=== PATIENT | male | born 1955 | race Caucasian/White ===

== ENCOUNTER 2024-07-21 13:47 | Inpatient (IN) | payer MEDICARE, OTHER, SELFPAY ==
[2024-07-21] VITALS (9 sets, daily range): BP systolic 138–177; BP diastolic 70–85; BMI 27.1
--- NOTE | 2024-07-21 10:21 | ED.GENMED ---
History of Present Illness
General
Chief Complaint: Weakness
Time Seen by Provider: 07/21/24 09:27
History of Present Illness
History of Present Illness:
69-year-old male with no significant past medical history presenting to the emergency department for pain and weakness. Patient reports about 2 months ago he started to have right hip and groin pain. He noticed it particularly when he was on a
vacation in [place], had difficulty keeping up with his on walking secondary to pain and weakness, also noted some paresthesias to his feet. He has been following with his doctor, has been on prednisone x 2 with improvement of symptoms. He
also notes that he has been following up with an orthopedic doctor, was told to take meloxicam for his pain. He then saw a pain management doctor who told him to take celecoxib. He denies any significant improvement of symptoms while on these
medications. Most recently in the past 4 to 5 days, has had increasing pain to his upper extremities with weakness to upper extremities as well. He also notes weakness to his lower extremities. Denies fever. Denies urinary or bowel complaints.
He is scheduled to get an outpatient MRI on Sunday, however came to the ER today due to his pain and difficulty walking. Denies any family history of neurologic processes. Denies chest pain, difficulty breathing, abdominal pain. Denies
dystrophy medical complaint
Phy Exam
Physical Exam
Physical Exam:
General: Well-appearing, no clinical signs of dehydration, nontoxic and in no acute distress
HEENT: protecting airway
Neck: appears supple
CV: Normal heart rate, regular rhythm
Resp: No accessory muscle use, no increased work of breathing, lungs clear to auscultation bilaterally
Abd: Soft and non-distended, no tenderness to palpation
Extremities: No tenderness to the midline cervical/thoracic/lumbar spine. Mild paraspinal tenderness to lumbar region. Weakness to all extremities, 4/5, difficulty keeping arms and legs off of the bed. Sensation is globally intact. Swelling to
the right hand without erythema or warmth.
Neuro: alert, no focal neurologic deficit
: deferred
Rectal: deferred
Psych: Normal affect
Skin: Intact
Course
Orders/Labs/Results
Orders:
Orders
07/21/24 10:09
Morphine Sulfate 4 mg IV NOW STA
07/21/24 10:30
CRP [C-Reactive Protein] Urgent
Complete Blood Count/With Diff Urgent
ESR [Erythrocyte Sed Rate] Urgent
Urinalysis Reflex To Culture Urgent
Date Specimen was Collected: 07/21/24
Time Specimen was Collected: 10:12
07/21/24 10:58
Comprehensive Metabolic Panel Urgent
Creatine Phosphokinase Urgent
Folate Urgent
Comment: B12 FOLATE ADDED ON BY FLOOR 12:50PM 07-21-24
Vitamin B12 Urgent
07/21/24 11:09
Protime/PTT Urgent
Comment: PREVIOUS CLOTTED
07/21/24 11:42
MethylPREDNISolone. [Solu-Medrol] 1,000 mg 0.9% Sodium Chloride 250 ml [Nss] 250 ml IV NOW
07/21/24 12:49
Add On- LAB Urgent
Tests Added?: b12 folate
07/21/24 13:20
Admit/Transfer Patient As Directed
Co-Sign Provider:
Level of Care: Inpatient admission
Assign to:: Medical/Surgical
Physician / Group: sony yuan
Diagnosis: Bilateral upper and lower extremity weakness concern for polymyositis
Reason for Hospitalization: Bilateral upper and lower extremity weakness concern for polymyositis
Expected length of stay greater than two midnights?: Yes
ELOS- Estimated Length of Stay in days: 4
I certify the patient meets the requirements for IP care: Yes
07/21/24 13:22
Code Status As Directed
Resuscitation Status: Full Code
07/21/24 13:26
PRN Pain Medication Management As Directed
May give lesser potent ordered pain med per pt: Yes
preference::
Protocol:: Medication orders for pain may be administered in a
manner that supports deferring to patient preference
when the pt is:
- Requesting an ordered lesser potent pain medication.
Least to most potent pain medications are defined
as: acetaminophen < NSAID < tramadol < opioids
(morphine, oxycodone, hydromorphone).
- Requesting a lesser dose of the same medication IF
ORDERED.
- Requesting a less intrusive route of administration
if both routes are prescribed by the provider (PO <
IV).
07/21/24 13:37
OMAR, IgG Reflex to HEp-2 [S] Routine
ANCA - MPO/PR3 Ab Profile [S] Routine
Cyclic Citrullinat Pep IgG/IgA [S] Routine
Rheumatoid Factor [Rheumatoid Agglutinin] Routine
Abnormal Lab Results
07/21/24 07/21/24 07/21/24
10:30 10:58 11:09
RBC 3.90 L 10^6/uL
(4.70-6.10)
Hgb 12.2 L g/dL
(13.0-18.0)
Hct 37.3 L %
(39.0-52.0)
MCV 95.6 H fL
(80.0-94.0)
MCH 31.3 H pg
(27.0-31.0)
MCHC 32.7 L g/dL
(33.0-37.0)
Absolute Monos (auto) 1.3 H 10^3/uL
(0.1-0.6)
Lymphocytes % 15.4 L %
(20.5-51.1)
Monocytes % 15.7 H %
(1.7-9.3)
ESR 87 H mm/hour
(0-20)
PT 15.2 H Sec
(11.4-14.6)
Glucose 116 H mg/dl
(70-99)
ALT 56 H U/L
(0-50)
Creatine Kinase 31 L U/L
(55-170)
C-Reactive Protein 151.70 H mg/L
(0.0-10.00)
Albumin 3.3 L g/dl
(3.5-5.0)
Urine Ketones Trace A
(Negative)
Urine Urobilinogen 2+ A
(Neg - 1+)
07/21/24 10:30
07/21/24 10:58
Vital Signs
Initial and Last Documented VS:
Initial Vital Signs
Temp Pulse Resp BP Pulse Ox
98.4 F 87 18 140/70 100
07/21/24 09:02 07/21/24 09:02 07/21/24 09:02 07/21/24 09:02 07/21/24 09:02
Last Documented Vital Signs
Temp Pulse Resp BP Pulse Ox
98.4 F 88 14 149/82 95
07/21/24 09:02 07/21/24 15:30 07/21/24 15:30 07/21/24 15:00 07/21/24 15:30
MDM/Problems Addressed
MDM/Problems Addressed:
69-year-old male without significant past medical presenting for progressive pain and weakness to extremities. Vital signs are normal.
On exam, patient is in no acute distress, however does appear uncomfortable secondary to pain. Patient with generalized weakness to all extremities, however denies any difficulty breathing, protecting airway without suspected respiratory
involvement. No focal tenderness to the midline spine. However symptoms appear to have been ongoing for the past 2 months with concern for progressive neurologic disorder versus polyarthropathy versus a transverse myelitis. Plan for laboratory
analysis. Will consult with neurology.
11:30 -in discussion with neurology, suspected polymyalgia rheumatica, recommending high-dose steroids. CRP is 150, consistent with a polyarthropathy. Plan for admission given patient's pain and weakness.
15:00 -[id number] discussion with hospitalist, who had discussed case with rheumatology. No in-house rheumatology at this time, however recommending high-dose steroids with suspicion for polymyositis. Feel the patient will ultimately require a
muscle biopsy and EMG. Patient himself does not want to be transferred, would prefer to stay here until stabilized from a musculoskeletal standpoint, with subsequent outpatient rheumatology follow-up. Plan for admission here, continued steroids,
MRI imaging of the thighs per rheumatology, with likely subsequent outpatient rheum follow-up. On reassessment, patient is moving all extremities much better after high-dose steroids.
*Critical Care Note
Total Time (30-74mins, 75-104mins- exclusive of procedures): Not Applicable
ED Attending Note
-
Portions of this chart may have been created with voice recognition software.� Occasional wrong word or��sound alike� substitutions may have occurred due to the inherent limitations of voice recognition software.
Discharge Plan
Departure
Patient Disposition: Admit
Date of Disposition: 07/21/24
Time of Disposition: 11:47
Presentation/result/management discussed w/ accepting MD/DO: Hospitalist
Patient with high blood pressure during this ER visit?: No
Condition: Fair
Discharge Problem:
Weakness, Polyarthralgia
Interventions
Interventions:
*Risk Screen - Suicide Last Done: 07/21/24 09:06
*General Assessment Last Done: 07/21/24 09:06
*Neglect/Abuse Screening Last Done: 07/21/24 09:06
ED- Fall Risk Assessment Last Done: 07/21/24 15:34
*ED COVID-19 Vaccine History Last Done: 07/21/24 10:39
*Nursing Disposition Last Done: 07/21/24 15:34
ED- Cardiac Assessment Last Done: 07/21/24 10:44
ED-Musculoskeletal Assessment Last Done: 07/21/24 10:44
ED- Neurological Assessment Last Done: 07/21/24 10:44
ED- Pulmonary Assessment Last Done: 07/21/24 10:44
Discharge Date and Time
Discharge Date/Time: 07/21/24 15:34
[2024-07-21] MEDS: MORPHINE SULFATE 4 MG IV (10:34)
[2024-07-21 11:20] LABS: % Basophils 0.4 % (0-2); % Eosinophils 0.5 % (0-6); % Immature Granulocytes 0.4 % (0-0.5); % Lymphocytes 15.4 % (20.5-51.1); % Monocytes 15.7 % (1.7-9.3); % Neutrophils 67.6 % (42.2-75.2); Absolute Lymphocytes 1.2 10^3/uL (1.2-3.4); Absolute Monocytes 1.3 10^3/uL (0.1-0.6); Absolute Neutrophils 5.4 10^3/uL (1.4-6.5); Hematocrit 37.3 % (39.0-52.0); Hemoglobin 12.2 g/dL (13.0-18.0); Mean Corp Hgb Conc. 32.7 g/dL (33.0-37.0); Mean Corpuscular Hgb 31.3 pg (27.0-31.0); Mean Corpuscular Volume 95.6 fL (80.0-94.0); Nucleated Red Blood Cells % 0 % (-); Red Cell Dist. Width 12.4 % (11.5-14.5)
[2024-07-21 11:26] LABS: ALT (SGPT) 56 U/L (0-50); AST (SGOT) 38 U/L (17-59); Albumin 3.3 g/dl (3.5-5.0); Alkaline Phosphatase 78 U/L (38-126); Blood Urea Nitrogen 11 mg/dl (9-20); Calcium 8.8 mg/dl (8.4-10.2); Carbon Dioxide 24 mmol/L (22-30); Chloride 100 mmol/L (98-107); Estimated Creatinine Clearance 103 ml/min; Glucose 116 mg/dl (70-99); Potassium 4.4 mmol/L (3.5-5.1); Sodium 135 mmol/L (135-145); Total Bilirubin 0.6 mg/dl (0.2-1.3); Total Protein 6.4 g/dl (6.3-8.2); eGFR > 60.00
[2024-07-21 11:38] LABS: APTT 33.4 Sec (23.4-35.0); INR 1.16; PT 15.2 Sec (11.4-14.6)
--- NOTE | 2024-07-21 12:05 | CON.NEURO ---
Consultation
Order
Date of Consultation: 07/21/24
Requesting Provider:
Reason for Consult: Weakness
Neurology Consultation Note.
HPI: This is a 69-year-old ambidextrous man who presented to [facility] on 07/21/2024 with pain and weakness. According to the patient he developed gradual, progressive painful right proximal leg weakness and stiffness that
progressed to the left side within several weeks. Mr. Joyce states that within the last several weeks his pain spread to bilateral proximal arms. The patient admits to right hand edema and joint stiffness along with pain with chewing on the
right.
Shayan Covarrubias reports significant improvement in his pain after he was started on oral steroids by ortho. He has been taking meloxicam, Celebrex and Tylenol for pain control without significant improvement. No reports of falls, rashes, weight
loss, visual changes, dysphagia or dyspnea.
ER VS: 140/70, 87, afebrile
EKG:pending
PDMP:none
Labs: Glucose�116, normal sodium, creatinine, ALT�56, CRP�150.7, hemoglobin�12.2, MCV�95.6, platelets�not available.
PMH: BPH, Peyronie's disease, YOVANI, history of Lyme disease, foreign metallic object in the eye (removed)
PSH: None
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
FH: Mother in her 90s from blood dyscrasias
All:NKDA
ROS:Constitutional: Negative. Negative for chills, fever and unexpected weight change.
HENT: Positive for right jaw pain
Eyes: Negative. Negative for photophobia, pain and visual disturbance.
Respiratory: Negative for cough, choking and shortness of breath.
Cardiovascular: Positive for right hand swelling
Gastrointestinal: Negative for abdominal pain and vomiting.
Endocrine: Negative. Negative for cold intolerance.
Genitourinary: Negative for dysuria, flank pain and urgency.
Musculoskeletal: Positive for myalgias, chronic intermittent back pain, arthralgias
Skin: Negative for rash.
Allergic/Immunologic: Negative. Negative for immunocompromised state.
Neurological: Positive for leg weakness, chronic right foot numbness
Psychiatric/Behavioral: Negative for behavioral problems, confusion and hallucinations.
General: Well developed. In no acute distress.
Cardio: Regular rate and rhythm without murmur. Extremities are without cyanosis or edema.
Neuro:
Mental Status: Alert, oriented to person, place, and date. Normal attention and recall. Good fund of knowledge. Follows complex requests across the midline. Comprehension, naming, and repetition intact. Immediate and delayed recall 3/3.
Cranial Nerves: . Pupils are equally round and reactive to light. EOMs full. Visual chen full to confrontation. No ptosis. No nystagmus. V1-V3 intact to light touch and pinprick bilaterally, symmetric. Face symmetric. Normal hearing AU.
The palate elevated well. SCMs and traps 5/5. Tongue midline. No dysarthria.
Motor: Normal bulk and tone. No pronator or arm drift. Strength 5/5 throughout. No clonus.
Reflexes: 2+ throughout the upper extremities and knees. 2/2 in AJs. Plantar responses flexor bilaterally.
Sensory: Normal pinprick, vibration and JPS.
Coordination: No dysmetria or tremor.
Gait: deferred
Assessment and Plan:
I. Proximal painful myopathy.
II. Asymmetric distal arthropathy
III. Ambulatory dysfunction
-Fall precautions
-EKG
-Please follow-up ESR, urinalysis, TSH, CK, RF, anti CCA, OMAR, ANCA panel,
-Rheumatology consult.
-PT
-DVT prophylaxis.
I personally reviewed all radiology and labs along with past medical records pertinent to current medical problems. Total time spent in patient care is 60 minutes.
Thank you for allowing us to participate in the care of this patient. We will continue to follow. Please do not hesitate to contact us with any questions or concerns.
Subjective/Objective
Subjective Data
Date of Service: July 21, 2024
Objective Data
Vital Signs
Temp Pulse Resp BP Pulse Ox
36.9 C 87 13 144/76 98
07/21/24 09:02 07/21/24 11:45 07/21/24 11:45 07/21/24 11:00 07/21/24 11:15
Lab Results
07/21/24 10:30
07/21/24 10:58
PT 15.2 Sec (11.4-14.6) H 07/21/24 11:09
INR 1.16 07/21/24 11:09
APTT 33.4 Sec (23.4-35.0) 07/21/24 11:09
Sodium 135 mmol/L (135-145) 07/21/24 10:58
Potassium 4.4 mmol/L (3.5-5.1) 07/21/24 10:58
BUN 11 mg/dl (9-20) 07/21/24 10:58
Glucose 116 mg/dl (70-99) H 07/21/24 10:58
Calcium 8.8 mg/dl (8.4-10.2) 07/21/24 10:58
Patient Allergies
No Known Allergies Allergy (Unverified 07/21/24 09:02)
Medications
-
Active Medications
Generic Name Dose Route Start Last Admin
Trade Name Freq PRN Reason Stop Dose Admin
Methylprednisolone Sodium 258 mls @ 258 mls/hr 07/21/24 11:42
Succinate 1,000 mg/ Sodium IV 07/21/24 12:41
Chloride NOW STA
Home Medications
�Medication �Instructions �Recorded
No Meds [No Current Medications] 07/21/24
Vital Signs and Labs
-
Vital Signs and Labs:
Vital Signs
Temp Pulse Resp BP Pulse Ox
36.9 C 87 13 144/76 98
07/21/24 09:02 07/21/24 11:45 07/21/24 11:45 07/21/24 11:00 07/21/24 11:15
Lab Results
07/21/24 10:30
07/21/24 10:58
PT 15.2 Sec (11.4-14.6) H 07/21/24 11:09
INR 1.16 07/21/24 11:09
APTT 33.4 Sec (23.4-35.0) 07/21/24 11:09
Sodium 135 mmol/L (135-145) 07/21/24 10:58
Potassium 4.4 mmol/L (3.5-5.1) 07/21/24 10:58
BUN 11 mg/dl (9-20) 07/21/24 10:58
Glucose 116 mg/dl (70-99) H 07/21/24 10:58
Calcium 8.8 mg/dl (8.4-10.2) 07/21/24 10:58
Medications
-
Medications:
Generic Name Dose Route Start Last Admin
Trade Name Freq PRN Reason Stop Dose Admin
Methylprednisolone Sodium 258 mls @ 258 mls/hr 07/21/24 11:42 07/21/24 12:18
Succinate 1,000 mg/ Sodium IV 07/21/24 12:41 258 mls
Chloride NOW STA Administration
Home Medications
-
Home Medications
No Meds [No Current Medications] 07/21/24
[2024-07-21] MEDS: SOLU-MEDROL 258 MG IV (12:18)
--- NOTE | 2024-07-21 12:27 | HPS.HSE ---
Addendum entered and electronically signed by CELIA Mandel 07/21/24 15:53:
Patient did mention TMJ pain with this he denied any headache blurred vision vision loss or scalp tenderness. He also stated that his pain is worse in the morning and as he would walk around throughout the day it would get slightly better
especially after taking Celebrex and the Medrol pack he was on.
This was discussed with Dr. Tiffanie Orona who believes PMR is his differential diagnosis given his inflammatory markers and above pain in a.m. responding to steroids getting better throughout the day
Original Note:
Family Physician
-
Family Physician: Karoline Vanegas
Chief Complaint
-
Bilateral upper and lower extremity weakness, pain
History of Present Illness
69-year-old male complaining of chronic right hip pain for approximately 2 months with weakness and some paresthesias to his feet while on recent vacation in [place] walking. He completed prednisone x 2 with improvement of symptoms prescribed by
Ortho. He was treated for sciatica had lumbar x-ray showing mild multilevel degenerative changes, lumbar osteophytosis, mild lower lumbar facet arthropathy. He was referred to pain management who placed him on Celebrex. Over the past 4 to 5 days
he now has had increasing pain to bilateral shoulders with weakness to biceps left greater than right. He has also noticed swelling to the MCP joints of bilateral hands some slight swelling to his knees. He denies any rashes he does have a round
pigmented birthmark to his right lower leg. He is an alcoholic who drinks 12 ounces of whiskey +3 12 ounce Guinness beers daily with last drink being Sunday at 8 PM 2 days ago 07/19/2024. He has no current tremors. He denies headaches, fever,
chills, bowel or bladder incontinence, saddle anesthesia, abdominal pain, nausea, vomiting, diarrhea, urinary symptoms, chest pain, palpitations, shortness of breath. Patient has past medical history of sciatica, back pain, chronic right hip pain,
alcohol abuse, smokes marijuana 1 joint a day
Medical History
Past Medical History
Past Medical History: Reports Other
Additional Past Medical History:
sciatica
back pain
chronic right hip pain
alcohol abuse
smokes marijuana 1 joint a day
Past Surgical History: Reports None
Social History
Alcohol: Daily (three guiness beers day plus 12 oz whiskey since age 15 total 54 years)
Drug: Marijuana (1 joint day )
Personal:
Living: With Family
Employment: Employed
Family History
Family History: Other (no autoimmune issuses)
Allergies / Home Medications
Allergies reflects when Allergies were last updated in [facility].
Home Medications with original date entered in [employer]
Allergy/Medication List:
Allergies
Allergy/AdvReac Type Severity Reaction Status Date / Time
No Known Allergies Allergy Unverified 07/21/24 09:02
Home Medications
No Meds [No Current Medications] 07/21/24
Review of Systems
-
History Source: Patient and Family ()
A 12 point ROS was completed and negative except as noted: Yes
Constitutional: Reports Fatigue; Denies Fever or Chills
EENT: Denies Sore Throat, Mouth Swelling or Runny Nose
Respiratory: Denies Cough, Hemoptysis or Trouble Breathing
Cardiac: Denies Chest Pain, Diaphoresis, Palpitations or Syncope
Abdomen/GI: Denies Abdominal Pain, Nausea, Vomiting, Diarrhea, Constipated, Bloody Stools or Black Stools
: Denies Dysuria, Frequency, Flank Pain, Incontinence, Difficulty Voiding or Urgency
Musculoskeletal: Reports Joint Pain (Bilateral hands, knees, shoulders, bilateral hips), Muscle Pain (Pain to bilateral calf muscles lateral thigh muscles near greater trochanter, bilateral biceps) and Edema (Over the MCP joints of both bilateral
hands, slight edema bilateral knees no obvious effusions)
Neurological: Reports Weakness (Upper extremities left greater than right weak shrug muscle left side difficulty lifting arms up due to severe bilateral shoulder pain, weakness to lower legs 3 out of 5 bilaterally when trying to lift up in the air
or bend at the knee); Denies Dizzy or Headache
Endocrine: Denies Polyuria or Polydipsia
Hematologic/Lymphatic: Reports Other (Chronic round pigmented birthmark to right lower extremity); Denies Bleeding, Swollen Glands or Bruising
Psych: Reports Calm
Physical Exam
Vital Signs
Vital Signs
Temp Pulse Resp BP Pulse Ox
98.4 F 87 13 144/76 98
07/21/24 09:02 07/21/24 11:45 07/21/24 11:45 07/21/24 11:00 07/21/24 11:15
Physical Exam
General: Comfortable and Conversant; No Fever or Chills
HEENT: NormoCephalic, Anicteric, Moist mucous membranes, PERRLA, [place] Conjunctivae, No Ptosis, Neck Nontender (No vertebral bony tenderness but tenderness bilateral cervical muscles and trapezius) and Other (Speech clear no difficulty swallowing)
Respiratory: Clear; No Wheezes, Rales or Rhonchi
Cardiac: S1/S2 and Regular Rhythm; No Murmur, Rub, Gallop or Peripheral Edema
Breast: Deferred by me
GI: Soft, Non Tender, Non Distended, Normal Bowel Sounds and No Hepatosplenomegaly
Rectal: Deferred by Provider
Genito-urinary: Deferred by me
Musculoskeletal: No Clubbing, No Cyanosis, No Edema and Other (Upper extremities left greater than right weak shrug muscle left side difficulty lifting arms up due to severe bilateral shoulder pain, weakness to lower legs 3 out of 5 bilaterally when
trying to lift up in the air or bend at the knee)
Neuro: AO x 3, Cranial Nerves Intact and Other (Upper extremities left greater than right weak shrug muscle left side difficulty lifting arms up due to severe bilateral shoulder pain, weakness to lower legs 3 out of 5 bilaterally when trying to lift
up in the air or bend at the knee); No Slurred Speech, Facial Droop, Tremors or Sedated
Hematologic/Lymphatic: No Lymphadenopathy
Psych: Calm
Laboratory Results
-
07/21/24 10:30
07/21/24 10:58
Laboratory Results
PT 15.2 Sec (11.4-14.6) H 07/21/24 11:09
INR 1.16 07/21/24 11:09
APTT 33.4 Sec (23.4-35.0) 07/21/24 11:09
Total Bilirubin 0.6 mg/dl (0.2-1.3) 07/21/24 10:58
AST 38 U/L (17-59) 07/21/24 10:58
ALT 56 U/L (0-50) H 07/21/24 10:58
Alkaline Phosphatase 78 U/L (38-126) 07/21/24 10:58
Data Reviewed
-
Lab Data: Labs Reviewed by me
Impression/Plan
-
Impression/plan:
Observation MedSurg
#Upper and lower extremity weakness concern for Polymyositis versus other autoimmune disease
-CRP elevated at 150
-Cervical spine MRI
-Consult Neurology who recommends high-dose steroids( neurology made aware of below conversation with rheumatology)
-Consult Rheumatology -I spoke with Dr. Tiffanie Orona who recommended bilateral thigh MRIs in addition to cervical MRI she would like EMG and biopsy of the muscles we do not offer that currently here however transfer to a tertiary center that has
rheumatology available would be ideal choice patient is preferring [facility] ER attending is calling to see if they provide those services versus [facility]
-IV Solu-Medrol infusing in ER, will continue methylprednisone tomorrow
-Check ESR, UA, OMAR, ANCA, total CK, cyclic Citrullinat peptide IgG/IgA, RA factor
-PT/OT/case management eval
#Alcohol abuse
Drinks 12 ounces of whiskey daily +3 12 ounce Guinness beers a day
-Last drink was 07/19/2024 at 8 PM
-ALT 56
-MSAS screen with protocol
-IV thiamine, IV folate
-Check B12, folate level
#Marijuana use
Smokes 1 joint a day has not had some in a few days
DVT prophylaxis
SCDs
Full code
[2024-07-21 13:06] LABS: Erythrocyte Sed Rate 87 mm/hour (0-20)
[2024-07-21 14:10] LABS: Urine Albumin Negative (Neg - Trace); Urine Bilirubin Negative (Negative); Urine Character Slightly Cloudy (Clear); Urine Color Yellow; Urine Glucose Negative (Negative); Urine Ketone Trace (Negative); Urine Leukocyte Negative (Negative); Urine Nitrite Negative (Negative); Urine Occult Blood Negative (Negative); Urine Specific Gravity 1.015 (<1.030); Urine Urobilinogen 2+ (Neg - 1+)
[2024-07-21 14:11] LABS: Creatine Phosphokinase 31 U/L (55-170)
--- NOTE | 2024-07-21 14:43 | W.PN.UPDATE ---
Update Note
Progress Note Update
This is an addendum to the H&P written by Lashonda Flanagan on 07/21/2024.
69-year-old male past medical history of gout, presenting with 2 months of right hip/groin pain and proximal lower extremity muscle weakness originally while vacationing in [place]. Lumbar x-ray showed mild degenerative changes. He was referred to
pain management started on Celebrex. Now with worsening bilateral shoulder pain/stiffness, weakness of biceps right greater than left, swelling of MCP joints of bilateral hands and swelling of the knees. No rashes. He had improvement with steroid
course twice.
Labs show elevated CRP of 150. Creatinine kinase of 31.
There was initial concern for PMR however given hand swelling and pain this seems unlikely. There is also concern for myositis however creatinine kinase is low at 31.
Neurology was consulted by ER and 1000 mg of methylprednisolone daily was recommended which will be continued.
There is some concern for polyarticular gout versus rheumatoid arthritis. Will check inflammatory markers, urinalysis, TSH, rheumatoid factor, anti-CCA, OMAR, ANCA panel, will check MRI cervical spine with and without contrast.
Rheumatology on-call also concerned for myositis and recommended MRI of bilateral thighs, thigh biopsy within 2 weeks, EMG of lower extremity.
[2024-07-21 17:48] LABS: Folate 8.6 ng/ml (2.76-20); Vitamin B12 218 pg/ml (239-931)
--- NOTE | 2024-07-21 18:12 | CM ---
Chart reviewed. Patient is here for gout vs. rheumatoid arthritis vs. another autoimmune disease. Labs drawn. Received steroids. Neurology and rheumatology consulted. Patient's at bedside. Patient is usually independent. 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 He drives. Owns a cane. Lives in a home. He has active PCP and pharmacy. No +SDOHs.
asking if could go home today. CM went over plan via hospitalist's notes. She is aware that biopsy can be done in 2 weeks. She repeatedly asked if the MRIs for his legs and cervical spine would be done. She also questioned if he would
be transferred. He is to be transferred, she'd like him to go to [facility] at [place]. She does not want to drive down to [place]. She and feel that because he is better, he should be able to go home. DANIEL explained there are labs that have
been drawn and may need some more studying. She is adamant about driving him, if he were to be transferred.
ANTICIPATED DISCHARGE PLAN: Transfer to another [facility] campus vs. going home with , when medically cleared.
[2024-07-22 06:09] LABS: % Basophils 0.1 % (0-2); % Immature Granulocytes 0.5 % (0-0.5); % Lymphocytes 11.8 % (20.5-51.1); % Monocytes 5.2 % (1.7-9.3); % Neutrophils 82.4 % (42.2-75.2); Absolute Lymphocytes 0.9 10^3/uL (1.2-3.4); Absolute Monocytes 0.4 10^3/uL (0.1-0.6); Absolute Neutrophils 6.3 10^3/uL (1.4-6.5); Hematocrit 35.5 % (39.0-52.0); Hemoglobin 11.8 g/dL (13.0-18.0); Mean Corp Hgb Conc. 33.2 g/dL (33.0-37.0); Mean Corpuscular Hgb 31.1 pg (27.0-31.0); Mean Corpuscular Volume 93.4 fL (80.0-94.0); Mean Platelet Volume 9.2 fL (7.4-10.4); Nucleated Red Blood Cells % 0 % (-); Platelet Count 570 10^3/uL (130-400); Red Cell Dist. Width 11.9 % (11.5-14.5); White Blood Cell Count 7.6 10^3/uL (4.8-10.8)
[2024-07-22 06:35] LABS: ALT (SGPT) 60 U/L (0-50); AST (SGOT) 37 U/L (17-59); Albumin 3.4 g/dl (3.5-5.0); Alkaline Phosphatase 79 U/L (38-126); Blood Urea Nitrogen 19 mg/dl (9-20); Calcium 9.3 mg/dl (8.4-10.2); Carbon Dioxide 23 mmol/L (22-30); Chloride 103 mmol/L (98-107); Estimated Creatinine Clearance 103 ml/min; Glucose 167 mg/dl (70-99); HDL Cholesterol 37 mg/dl; LDL Cholesterol, Calculated 75 mg/dl; Potassium 5.1 mmol/L (3.5-5.1); Sodium 138 mmol/L (135-145); Total Bilirubin 0.3 mg/dl (0.2-1.3); Total Cholesterol 124 mg/dl (50-199); Total Protein 6.4 g/dl (6.3-8.2); Triglyceride 61 mg/dl (10-149); Very Low Density Lipoprotein 12 mg/dl (0-30); eGFR > 60.00
[2024-07-22 07:00] VITALS: BP 149/88
[2024-07-22] MEDS: VALIUM 2 MG PO (09:42)
[2024-07-22] MEDS: SOLU-MEDROL 258 MG IV (12:13)
--- NOTE | 2024-07-22 13:56 | W.PN.HOSP.TC ---
Addendum entered and electronically signed by Lizzie Santos MD 07/22/24 18:18:
I saw and evaluated the patient independently. I reviewed the resident�s note and agree with findings and plan as documented by Dr. Martel.
GENERAL: well developed, well nourished, male in no apparent distress
HEENT: NC/AT--no O2 requirements
HEART: regular rate and rhythm, +S1, +S2
LUNGS : clear to auscultation bilaterally
ABDOM: soft, nontender, nondistended, + bowel sounds
EXT: no cyanosis, clubbing, or edema
NEUROLOGIC: grossly intact
diffuse myalgias with proximal muscle weakness--Concern for polymyalgia rheumatica--Differential includes polymyositis, polyarticular gout, versus other autoimmune disease --elevated inflammatory markers--feels better with pulse methylprednisolone--
RF, CCP, OMAR, PR3, MPO pending--- Polymyositis less likely considering normal CK level and normal MRI (below)-- CSPine MRI: Suspected active inflammation of the nuchal ligament posterior to the C5 and C6 spinous processes. Degenerative changes of
cervical spine--- MRI of the left and right thighs: Mild tendinosis, no evidence for significant myositis-- Patient to be discharged home on 20mg Prednisone and followed up by Rheumatology outpatient.
Alcohol Use Disorder --Drinks 12 ounces of whiskey daily, 3 12 ounce cans of Guinness per day--numbness could be due to alcohol neuropathy, thiamine, folate deficiency--no signs of DTs--B12 low normal, would consider repletion--folate WNL
ok for d/c with f/u with rheum
Original Note:
Today's Communication/Plan
-
.
Assessment / Plan
Assessment / Plan
1. Concern for polymyalgia rheumatica
- Differential includes polymyositis, polyarticular gout, versus other autoimmune disease
- CRP 150 (elevated), ESR 87 (elevated), CK 31
- RF, CCP, OMAR, PR3, MPO pending
- Uric Acid Level Pending
- Polymyositis less likely considering normal CK level and normal MRI (below)
- CSPine MRI: Suspected active inflammation of the nuchal ligament posterior to the C5 and C6 spinous processes. Degenerative changes of cervical spine.
- MRI of the left and right thighs: Mild tendinosis, no evidence for significant myositis.
- Patient to be discharged home on 20mg Prednisone and followed up by Rheumatology outpatient.
2. Alcohol Use Disorder
-Drinks 12 ounces of whiskey daily, 3 12 ounce cans of Guinness per day.
-Last drink was 3 days prior to presentation, at 8 PM.
-AST elevated, 60.
-MSAS remained 0-1 throughout admission.
-Vitamin B12 equals 218. Folate normal.
Anticipated Discharge: Today
Subjective/Interval History
-
Date of Service: July 22, 2024
Pt seen and examined this morning, sitting in chair comfortably. Was given pulse dose steroid yesterday, and today reports feeling markedly improved from admission. Denies pain in upper extremity/lower extremity bilaterally and is able to get up and
out of chair to walk. Notes mild swelling of the right hand that is also improved from presentation. In addition the patient denies fever, chills, joint warmth/redness, chest pain, shortness of breath.
Patient discussed in-depth history of chronic right hip pain, lower lumbar pain, lumbar x-rays exhibiting degenerative changes, treatment with prednisone as initiated by Ortho, referral to pain management and treatment with Celebrex. Patient notes
his current presentation of pain in the bilateral shoulders and bilateral hips began over the past 4 to 5 days.
Objective Data
-
Labs:
Laboratory Results
07/22/24
05:34
WBC 7.6
Hgb 11.8 L
Hct 35.5 L
Plt Count 570 H
Sodium 138
Potassium 5.1
Chloride 103
Carbon Dioxide 23
BUN 19
Creatinine 0.7
Glucose 167 H
Calcium 9.3
Total Bilirubin 0.3
AST 37
ALT 60 H
Alkaline Phosphatase 79
Vital Signs:
Vital Signs
Temp Pulse Resp BP Pulse Ox
97.9 F 99 18 149/88 94
07/22/24 07:00 07/22/24 07:00 07/22/24 07:00 07/22/24 07:00 07/22/24 07:00
I&O
07/21/24 07/22/24 07/23/24
06:59 06:59 06:59
Intake Total 920 / 920
Balance 920 / 920
Review of Systems
-
History Source: Patient
Constitutional: Reports No Symptoms
EENT: Reports No Symptoms Reported
Respiratory: Reports No Symptoms
Cardiac: Reports No Symptoms
Abdomen/GI: Reports No Symptoms
Musculoskeletal: Reports Joint Pain, Muscle Pain, Muscle Stiffness, Arthralgias and Myalgias
Skin: Reports No Symptoms
Physical Exam
-
General: Well Developed, Well Nourished, No Apparent Distress and Other (appears to be comfortable after methylprednisolone dose given)
HEENT: Normocephalic and Atraumatic
Respiratory: Clear to Auscultation
Cardiac: Regular Rhythm and S1/S2
GI: Soft and Nontender
Musculoskeletal: No Clubbing, No Cyanosis, No Edema and Other (Motor strength 4-5/5 after methylprednisolone dose; patient able to quickly get out of chair and walk across room. Noted right hand swelling, greatest at the MCPs. )
Skin: Warm and Dry
Neuro: Awake, Alert and Oriented
Psych: Calm
Data Reviewed
-
MRI: Report Reviewed by me
Labs: Labs Reviewed by me
--- NOTE | 2024-07-22 14:38 | W.PN.NEURO.1 ---
Today's Communication / Plan
-
.
Subjective/Objective
Subjective Data
Date of Service: July 22, 2024
Neurology follow-up note
Mr. Covarrubias endorses significant improvement of his myalgias as well as strength following initiation of methylprednisone. No reports of tremors, insomnia, gastric pain.
C spine MRI showed Thickening and enhancement of the nuchal ligament posterior to the C5 and C6 spinous processes, seen in acute inflammation, cervical DJD.
Labs: OMAR, CCP, RF�pending, UA�negative for protein, CK-31,
PMH: BPH, Peyronie's disease, YOVANI, history of Lyme disease, foreign metallic object in the eye (removed)
PSH: None
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
FH: Mother in her 90s from blood dyscrasias
All:NKDA
ROS:Constitutional: Negative. Negative for chills, fever and unexpected weight change.
HENT: Positive for right jaw pain
Eyes: Negative. Negative for photophobia, pain and visual disturbance.
Respiratory: Negative for cough, choking and shortness of breath.
Cardiovascular: Positive for right hand swelling
Gastrointestinal: Negative for abdominal pain and vomiting.
Endocrine: Negative. Negative for cold intolerance.
Genitourinary: Negative for dysuria, flank pain and urgency.
Musculoskeletal: Positive for arthralgias, improved
Skin: Negative for rash.
Allergic/Immunologic: Negative. Negative for immunocompromised state.
Neurological: Positive for myalgias,improved
Psychiatric/Behavioral: Negative for behavioral problems, confusion and hallucinations.
General: Well developed. In no acute distress.
Cardio: Regular rate and rhythm without murmur. Extremities are without cyanosis or edema.
Neuro:
Mental Status: Alert, oriented to person, place, and date. Normal attention and recall. Good fund of knowledge. Follows complex requests across the midline. Comprehension, naming, and repetition intact. Immediate and delayed recall 3/3.
Cranial Nerves: . Pupils are equally round and reactive to light. EOMs full. Visual chen full to confrontation. No ptosis. No nystagmus. V1-V3 intact to light touch and pinprick bilaterally, symmetric. Face symmetric. Normal hearing AU.
The palate elevated well. SCMs and traps 5/5. Tongue midline. No dysarthria.
Motor: Normal bulk and tone. No pronator or arm drift. Strength 5/5 throughout. No clonus.
Reflexes: 2+ throughout the upper extremities and knees. Plantar responses flexor bilaterally.
Sensory: Normal vibration at the toes.
Coordination: No dysmetria or tremor.
Gait: Normal base, stance, arm swing.
Assessment and Plan:
I. Proximal painful myopathy, clinically improved.
II. Asymmetric distal arthropathy
III. Ambulatory dysfunction
-Fall precautions
-Rheumatology consult.
-Please recall neurology services any questions or concerns
I personally reviewed all radiology and labs along with past medical records pertinent to current medical problems. Total time spent in patient care is 36 minutes.
Thank you for allowing us to participate in the care of this patient. Please do not hesitate to contact us with any questions or concerns.
Objective Data
Vital Signs
Temp Pulse Resp BP Pulse Ox
36.6 C 99 18 149/88 94
07/22/24 07:00 07/22/24 07:00 07/22/24 07:00 07/22/24 07:00 07/22/24 07:00
Lab Results
07/22/24 05:34
07/22/24 05:34
PT 15.2 Sec (11.4-14.6) H 07/21/24 11:09
INR 1.16 07/21/24 11:09
APTT 33.4 Sec (23.4-35.0) 07/21/24 11:09
Sodium 138 mmol/L (135-145) 07/22/24 05:34
Potassium 5.1 mmol/L (3.5-5.1) 07/22/24 05:34
BUN 19 mg/dl (9-20) 07/22/24 05:34
Glucose 167 mg/dl (70-99) H 07/22/24 05:34
Calcium 9.3 mg/dl (8.4-10.2) 07/22/24 05:34
LDL Cholesterol, Calc 75 mg/dl 07/22/24 05:34
Vitamin B12 218 pg/ml (628-931) L 07/21/24 10:58
Patient Allergies
No Known Allergies Allergy (Unverified 07/21/24 09:02)
Vital Signs and Labs
-
Vital Signs and Labs:
Vital Signs
Temp Pulse Resp BP Pulse Ox
36.6 C 99 18 149/88 94
07/22/24 07:00 07/22/24 07:00 07/22/24 07:00 07/22/24 07:00 07/22/24 07:00
Lab Results
07/22/24 05:34
07/22/24 05:34
PT 15.2 Sec (11.4-14.6) H 07/21/24 11:09
INR 1.16 07/21/24 11:09
APTT 33.4 Sec (23.4-35.0) 07/21/24 11:09
Sodium 138 mmol/L (135-145) 07/22/24 05:34
Potassium 5.1 mmol/L (3.5-5.1) 07/22/24 05:34
BUN 19 mg/dl (9-20) 07/22/24 05:34
Glucose 167 mg/dl (70-99) H 07/22/24 05:34
Calcium 9.3 mg/dl (8.4-10.2) 07/22/24 05:34
LDL Cholesterol, Calc 75 mg/dl 07/22/24 05:34
Vitamin B12 218 pg/ml (239-931) L 07/21/24 10:58
Medications
-
Medications:
Generic Name Dose Route Start Last Admin
Trade Name Freq PRN Reason Stop Dose Admin
Acetaminophen 650 mg 07/21/24 15:53
Acetaminophen 325 Mg Tablet PO 08/18/24 15:52
Q4HPRN PRN
mild pain/BLANK/temp> 100.4F
Enoxaparin Sodium 40 mg 07/21/24 18:00 07/21/24 18:54
Enoxaparin Sodium 40 Mg/0.4 Ml Syringe SC 08/18/24 17:59 Not Given
QPM RAYRAY
Methylprednisolone Sodium 258 mls @ 258 mls/hr 07/22/24 12:00 07/22/24 12:13
Succinate 1,000 mg/ Sodium IV 08/18/24 11:59 258 mls
Chloride Q24H RAYRAY Administration
Sodium Chloride 0 flush 07/21/24 17:00
Sodium Chloride 0.9% (Flush) Syringe IV 08/18/24 16:59
PER PROTOCOL RAYRAY
Home Medications
-
Home Medications
prednisone 20 mg tablet 20 mg PO DAILY #30 tabs 07/22/24
[2024-07-22 14:41] VITALS: BP 144/77; PULSE 84; O2SAT 95
[2024-07-22 15:00] VITALS: BP 166/86
[2024-07-22 15:50] LABS: Uric Acid 5.4 mg/dl (3.5-8.5)
[2024-07-22 16:20] LABS: TSH 0.44 uIU/ml (0.47-4.68)
--- NOTE | 2024-07-22 18:36 | W.DCSUMMARY ---
Addendum entered and electronically signed by Lizzie Santos MD 07/23/24 07:17:
Read, reviewed, and agree. See same day progress note for additional details. Time spent coordinating care, DC planning, review of DC plan of care with resident, transition of care, review of records in EMR, med rec, consults, notes, d/w
consultants, nursing, family, and CM = 20 minutes
Original Note:
Discharge Summary
Discharge Data
Date of Admission: 07/21/24
Date of Discharge: 07/22/24
Total time spent discharging patient (in min): 20
-
Pending Results: Yes
Additional Pending Results:
Rheumatoid Factor, Anti-CCP, anti-nuclear antibody, PR3-antibody, myeloperoxidase antibody, uric acid level
Hospital Course
Mr. Joyce is a 69-year-old male with a past medical history of gout, Lyme's disease, benign prostatic hyperplasia, generalized anxiety disorder who presented to the emergency department at [facility] on 07/21/2024 complaining of pain and
weakness. The patient endorses a close to 2-month history of chronic right hip pain and lower lumbar pain. He endorses that since the beginning of this issue, he has had lumbar x-rays that exhibited degenerative changes, a treatment with Medrol
dose pack as initiated by an orthopedist that greatly alleviated the symptoms, and evaluation by a tumbling barrel painter who treated him with Celebrex. The pain continue to persist and progressed to his left lower extremity as well, and over
the past 4 to 5 days the patient also noticed pain in the bilateral proximal upper extremities as well.
In the emergency department, the patient exhibited mild paraspinal tenderness to the lumbar region, 4/5 weakness in all extremities, and difficulty keeping his arms and legs off of the bed. In addition there was swelling to the right hand without
erythema or warmth. Laboratory studies exhibited an elevated erythrocyte sedimentation rate of 87, and elevated C-reactive protein of 151, a normal creatine kinase of 31, and a slightly elevated prothrombin time of 15.2. Since there was concern
for a progressive neurological disorder versus polyarthropathy versus transverse myelitis, neurology was consulted and the patient was admitted to [facility]. After discussion with neurology, polymyalgia rheumatica was #1 on the
differential. Since this was thought to be a rheumatologic disorder and there was no in-house rubber ball finisher, plans were made for outpatient rheumatologic follow up. The patient was given methylprednisolone which greatly improved his symptoms.
MRI imaging of the bilateral lower extremities revealed tendinosis, however no evidence of myositis. MRI imaging of the cervical spine exhibited some evidence of inflammation at the nuchal line. Plans were made for the patient to be followed up
with the rubber ball finisher on an outpatient basis. The patient was discharged on 20 mg of prednisone daily, to be continued until the patient saw the rubber ball finisher. Pending labs include rheumatoid factor, anti-CCP, antinuclear antibody, MN-3
antibody, myeloperoxidase antibody, and uric acid level.
Of note, vitamin B12 level was found to be low and it is recommended that the patient receive supplementation by his primary care provider.
Discharge Plan
-
Patient Disposition: Home (Routine Discharge)
Discharge Diagnosis/Procedures: Presumed Polymyalgia Rheumatica
Condition: Good
Diet: As tolerated and Regular
Activity: As tolerated
Driving Restrictions: As prior to admission
Bathing Restrictions: None
Referrals:
Tiffanie Orona MD [Active] - (call for hospital follow up appointment)
Karoline Vanegas MD [Family Provider] - in less than 1 week
Additional Discharge Medication Instructions: bring discharge paperwork with you to your rheum appointment
Prescriptions:
New
prednisone 20 mg tablet
20 mg PO DAILY Qty: 30 0RF
Rx Instructions:
Take until your appointment with the rubber ball finisher.
pantoprazole [Protonix] 40 mg tablet,delayed release (DR/EC)
40 mg PO DAILY Qty: 30 0RF
Discharge Orders:
Discharge Patient (As Directed); Ordered 07/22/24
Ordered By: Pierre Martel
Discharge Date and Time
Discharge Date/Time: 07/22/24 16:29
Print Language: UKRAINIAN
[2024-07-24 07:25] LABS: CCP Antibody IgG/IgA 5 Units (0-19)
== END 2024-07-22 16:29 | disposition home or self-care (01) | DRG 547 ==
LOC: 1 ACUTE 13:47
PROVIDERS: Clinical Nurse Specialist Family Health; ADMITTING PHYSICIAN Hospitalist; ATTENDING PHYSICIAN Internal Medicine; EMERGENCY PHYSICIAN Student in an Organized Health Care Education/Training Program; FAMILY PHYSICIAN Family Medicine; OTHER PHYSICIAN Psychiatry & Neurology Neurology
DX: M35.3 Polymyalgia rheumatica (principal); N40.0 Benign prostatic hyperplasia without lower urinary tract symptoms; M54.30 Sciatica, unspecified side; M12.9 Arthropathy, unspecified; G89.29 Other chronic pain; M25.551 Pain in right hip; Z86.19 Personal history of other infectious and parasitic diseases; F41.1 Generalized anxiety disorder
CPT/HCPCS: 72156; 73718; 80053; 80061; 81003; 82550; 82607; 82746; 83516; 84443; 84550; 85025; 85610; 85652; 85730; 86038; 86140; 86200; 86430; 96365; 96375; 97162; 99285; A9575

== ENCOUNTER → 2024-07-29 09:58 | Outpatient (REF) | payer MEDICARE, OTHER, SELFPAY ==
[2024-07-29 11:49] LABS: Erythrocyte Sed Rate 68 mm/hour (0-20)
== END ==
LOC: RAD 09:58
PROVIDERS: ATTENDING PHYSICIAN Physician Assistant
DX: M81.8 Other osteoporosis without current pathological fracture (principal); R79.82 Elevated C-reactive protein (CRP); Z13.820 Encounter for screening for osteoporosis
CPT/HCPCS: 36415; 85652; 86140

== ENCOUNTER → 2024-09-25 10:53 | Outpatient (REF) | payer MEDICARE, OTHER, SELFPAY ==
[2024-09-25 11:46] LABS: Ionized Calcium 1.16 mMOL/L (1.15-1.33)
[2024-09-25 12:09] LABS: Calcium 9.4 mg/dl (8.4-10.2); Phosphorus 3.1 mg/dl (2.5-4.5); Uric Acid 7.2 mg/dl (3.5-8.5)
[2024-09-25 12:14] LABS: Erythrocyte Sed Rate 4 mm/hour (0-20)
[2024-09-25 12:27] LABS: Vitamin D, 25-OH*** 27.3 ng/mL (30-80)
[2024-09-25 18:54] LABS: Hepatitis B Surface Antigen Negative (Negative)
[2024-09-25 19:11] LABS: Hepatitis B Core Ab, Total Negative (Negative); Hepatitis B Surface Antibody Negative; Hepatitis C Antibody Negative (Negative)
[2024-09-27 09:30] LABS: Intact PTH 42.2 pg/ml (13.6-85.8)
[2024-09-28 01:00] LABS: Albumin 4.25 g/dL (3.75-5.01); Alpha 2 Globulin 0.77 g/dL (0.48-1.05); Free Kappa Light Chains,Quant 25.78 mg/L (3.30-19.40); Free Lambda Light Chains,Quant 22.47 mg/L (5.71-26.30); IgA 574 mg/dL (68-408); IgG 654 mg/dL (768-1632); IgM 74 mg/dL (35-263); Immunofixation Electrophoresis IFE Done; Kappa/Lambda Fr Light Ratio 1.15 (0.26-1.65); Total Protein-Electrophoresis 7.1 g/dL (6.3-8.2)
== END ==
LOC: REG 10:53
PROVIDERS: ATTENDING PHYSICIAN Student in an Organized Health Care Education/Training Program; FAMILY PHYSICIAN Family Medicine
DX: M35.3 Polymyalgia rheumatica (principal); M81.8 Other osteoporosis without current pathological fracture; R79.82 Elevated C-reactive protein (CRP)
CPT/HCPCS: 36415; 73130; 73630; 82306; 82330; 82784; 83521; 83970; 84100; 84155; 84165; 84550; 85652; 86140; 86334; 86480; 86704; 86706; 86803; 87340

== ENCOUNTER → 2024-10-23 15:01 | Outpatient (REF) | payer MEDICARE, OTHER, SELFPAY ==
[2024-10-23 16:24] LABS: Erythrocyte Sed Rate 22 mm/hour (0-20)
== END ==
LOC: REG 15:01
PROVIDERS: ATTENDING PHYSICIAN Student in an Organized Health Care Education/Training Program; FAMILY PHYSICIAN Family Medicine
DX: M19.90 Unspecified osteoarthritis, unspecified site (principal); M31.6 Other giant cell arteritis; M35.3 Polymyalgia rheumatica; R79.82 Elevated C-reactive protein (CRP)
CPT/HCPCS: 36415; 85652; 86140

== ENCOUNTER → 2024-11-24 14:30 | Outpatient (REF) | payer MEDICARE, OTHER, SELFPAY ==
[2024-11-24 14:58] LABS: % Basophils 0.7 % (0-2); % Eosinophils 0.2 % (0-6); % Immature Granulocytes 0.5 % (0-0.5); % Lymphocytes 17.2 % (20.5-51.1); % Monocytes 9.5 % (1.7-9.3); % Neutrophils 71.9 % (42.2-75.2); Absolute Basophils 0.1 10^3/uL (0-0.2); Absolute Lymphocytes 1.4 10^3/uL (1.2-3.4); Absolute Monocytes 0.8 10^3/uL (0.1-0.6); Absolute Neutrophils 5.9 10^3/uL (1.4-6.5); Hematocrit 40.9 % (39.0-52.0); Mean Corp Hgb Conc. 34.2 g/dL (33.0-37.0); Mean Corpuscular Hgb 32.5 pg (27.0-31.0); Mean Corpuscular Volume 94.9 fL (80.0-94.0); Mean Platelet Volume 9.8 fL (7.4-10.4); Nucleated Red Blood Cells % 0 % (-); Platelet Count 278 10^3/uL (130-400); Red Blood Cell Count 4.31 10^6/uL (4.70-6.10); Red Cell Dist. Width 14.2 % (11.5-14.5); White Blood Cell Count 8.1 10^3/uL (4.8-10.8)
[2024-11-24 15:14] LABS: Erythrocyte Sed Rate 21 mm/hour (0-20)
[2024-11-24 15:22] LABS: ALT (SGPT) 16 U/L (0-50); AST (SGOT) 22 U/L (17-59); Albumin 4.1 g/dl (3.5-5.0); Alkaline Phosphatase 41 U/L (38-126); Blood Urea Nitrogen 14 mg/dl (9-20); Calcium 9.9 mg/dl (8.4-10.2); Carbon Dioxide 28 mmol/L (22-30); Chloride 104 mmol/L (98-107); Glucose 133 mg/dl (70-99); Sodium 140 mmol/L (135-145); Total Bilirubin 0.5 mg/dl (0.2-1.3); Total Protein 6.8 g/dl (6.3-8.2); eGFR > 60.00
== END ==
LOC: REG 14:30
PROVIDERS: ATTENDING PHYSICIAN Student in an Organized Health Care Education/Training Program
DX: M19.90 Unspecified osteoarthritis, unspecified site (principal); M35.3 Polymyalgia rheumatica; M81.8 Other osteoporosis without current pathological fracture; R79.82 Elevated C-reactive protein (CRP)
CPT/HCPCS: 36415; 80053; 85025; 85652; 86140

== ENCOUNTER → 2025-01-26 16:06 | Outpatient (REF) | payer MEDICARE, OTHER, SELFPAY ==
[2025-01-26 17:27] LABS: Erythrocyte Sed Rate 27 mm/hour (0-20)
== END ==
LOC: REG 16:06
PROVIDERS: ATTENDING PHYSICIAN Student in an Organized Health Care Education/Training Program; FAMILY PHYSICIAN Internal Medicine
DX: M35.3 Polymyalgia rheumatica (principal)
CPT/HCPCS: 36415; 85652; 86140

== ENCOUNTER → 2025-04-03 15:51 | Outpatient (REF) | payer MEDICARE, OTHER, SELFPAY ==
[2025-04-03 17:20] LABS: C-Reactive Protein 20.00 mg/L (0.0-10.00)
== END ==
LOC: REG 15:51
PROVIDERS: ATTENDING PHYSICIAN Family Medicine
DX: M25.461 Effusion, right knee (principal); M35.3 Polymyalgia rheumatica
CPT/HCPCS: 36415; 85652; 86140; 86618; 87468; 87484; 87798

== ENCOUNTER → 2025-06-26 14:37 | Outpatient (REF) | payer MEDICARE, OTHER, SELFPAY ==
[2025-06-26 16:16] LABS: C-Reactive Protein 5.60 mg/L (0.0-10.00)
== END ==
LOC: REG 14:37
PROVIDERS: ATTENDING PHYSICIAN Student in an Organized Health Care Education/Training Program
DX: M35.3 Polymyalgia rheumatica (principal); R79.82 Elevated C-reactive protein (CRP)
CPT/HCPCS: 36415; 85652; 86140